=== PATIENT | female | born 2000 | race Caucasian/White ===

== ENCOUNTER 2023-07-21 01:03 | Emergency (ER) | payer OTHER, SELFPAY ==
[2023-07-21] VITALS (19 sets, daily range): BP systolic 127–137; BP diastolic 72–92; PULSE 68–103; RESP 11–23; TEMP 36.6; O2SAT 92–100
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
--- NOTE | ~2023-07-21 | XR_ITS ---
EXAMINATION: XR hip LT 2V w AP pelvis DATE: 07/21/2023 01:46 INDICATION: Left-sided pain. Fall. TECHNIQUE: An anteroposterior view of the pelvis and 2 views of left hip were obtained. COMPARISON: None. FINDINGS: Bone alignment normal. No fracture. Joint spaces are normal. There is an intrauterine devic e in expected position. IMPRESSION: 1. No fracture. Reviewed, dictated and finalized at location A. OL BASED THERAPIST IMPRESSION: 1. No fracture.
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
[2023-07-21] MEDS: SODIUM CHLORIDE 0.9% IV 1,000 ML 999 ML IV CONT (01:18)
[2023-07-21 01:21] LABS: Basophils Absolute Auto 0.1 K/mm3 (0.0-0.1); Basophils Percent Auto 0.6 % (0.2-1.2); Eosinophils Absolute Auto 0.1 K/mm3 (0-0.3); Eosinophils Percent Auto 0.9 % (0-4.4); Hematocrit 46.6 % (37.0-47.0); Hemoglobin 14.2 g/dL (12.0-15.0); Immature Granulocyte Absolute 0.05 K/mm3 (0.00-0.031); Immature Granulocyte Percent A 0.6 % (0-0.5); Lymphocytes Absolute Auto 1.81 K/mm3 (0.9-3.2); Lymphocytes Percent Auto 22.4 % (18.3-44.2); Mean Corpuscular HGB Conc 30.5 g/dl (32-36); Mean Corpuscular Hemoglobin 28.2 pg (26-34); Mean Corpuscular Volume 92.5 fl (80-100); Mean Platelet Volume 9.2 fl (7.4-10.4); Monocytes Absolute Auto 0.5 K/mm3 (0.1-0.6); Monocytes Percent Auto 5.7 % (2.6-8.5); Neutrophils Absolute Auto 5.7 K/mm3 (1.3-6.7); Neutrophils Percent Auto 69.8 % (45.5-73.1); Platelet Count Result 308 k/mm3 (150-375); Red Blood Count 5.04 M/mm3 (4.2-5.4); Red Cell Distribution Width 14.8 % (11.5-14.5); White Blood Count 8.1 K/mm3 (4.5-10.0)
[2023-07-21 01:31] LABS: INR 0.9; Prothrombin Time 12.9 Seconds (11.1-14.7)
[2023-07-21 01:31] LABS: Lactic Acid Reflex 1.9 mmol/L (0.7-2.0)
[2023-07-21 01:32] LABS: Alanine Aminotransferase 22 U/L (6-35); Albumin Level 4.5 g/dL (3.5-5.1); Alkaline Phosphatase 51 U/L (38-126); Anion Gap 8 mmol/L (8-16); Aspartate Amino Transferase 36 U/L (14-36); Bilirubin,Total 0.3 mg/dL (0.2-1.3); Blood Urea Nitrogen 9 mg/dL (7-17); Calcium 9.2 mg/dL (8.4-10.2); Carbon Dioxide 25 mmol/L (22-30); Chloride 106 mmol/L (98-107); Estimated CRCL calculation 88 ml/min; Estimated Glomerular Filt Rate > 60; Glucose 106 mg/dL (65-110); Partial Thromboplastin Time 26.4 SECONDS (22.3-36.8); Potassium 3.9 mmol/L (3.4-5.0); Sodium 139 mmol/L (137-145)
[2023-07-21 01:33] LABS: Ethanol 113 mg/dL (<10)
[2023-07-21 02:06] LABS: Appearance Urine Clear (Clear); Bilirubin Urine Negative (Negative); Blood Urine Negative (Negative); Color Urine Yellow (Yellow); Glucose Urine UA Negative (Negative); Ketones Urine Negative (Negative); Leukocyte Esterase Ur Negative LEU/UL (Negative); Nitrate Urine Negative (Negative); Protein Urine Negative (Negative); Urobilinogen Urine 0.2 mg/dL (<2.0); pH Urine 7.5 (5.0-9.0)
[2023-07-21 02:11] LABS: Add Urine Microscopic? NO
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
--- NOTE | 2023-07-21 02:22 | PC.NURSE ---
RN Report given to Yaneli Charge Nurse [facility] ER.
[2023-07-21 02:23] LABS: Amphetamine Screen Urine Negative (Negative); Barbiturate Screen Urine Negative (Negative); Benzodiazepines Screen Urine Negative (Negative); Cannabinoid Screen Urine Positive (Negative); Cocaine Screen Urine Negative (Negative); Methadone Screen Urine Negative (Negative); Opiate Screen Urine Negative (Negative); Phencyclidine Screen Urine Negative (Negative)
[2023-07-21] MEDS: MORPHINE SULFATE (*CRX) 4 MG/ML INJ IV PUSH ×2 (02:58→04:06)
[2023-07-21 03:51] LABS: Pregnancy On Board Control Positive; Urine Pregnancy Test Negative
== END 2023-07-21 04:14 | disposition short-term general hospital (02) ==
PROVIDERS: Emergency Provider Emergency Medicine
DX: S22.42XA Multiple fractures of ribs, left side, initial encounter for closed fracture (principal); S32.018A Other fracture of first lumbar vertebra, initial encounter for closed fracture; S32.028A Other fracture of second lumbar vertebra, initial encounter for closed fracture; S32.038A Other fracture of third lumbar vertebra, initial encounter for closed fracture; Z97.5 Presence of (intrauterine) contraceptive device; W14.XXXA Fall from tree, initial encounter
CPT/HCPCS: 36415; 70450; 71260; 72125; 73502; 74177; 80053; 80307; 81003; 81025; 83605; 83735; 85025; 85610; 85730; 96361; 96374; 96376; 99285; J2270; J7030; Q9967